=== PATIENT | male | born 1960 | race Caucasian/White ===

== ENCOUNTER → 2018-03-01 | Outpatient (CLI) | payer OTHER | END | disposition home or self-care (01) | LOC: KCIC MRI 12:12 | DX: M51.36 Other intervertebral disc degeneration, lumbar region (principal); M48.061 Spinal stenosis, lumbar region without neurogenic claudication; M47.896 Other spondylosis, lumbar region; M40.46 Postural lordosis, lumbar region | CPT/HCPCS: 72148 ==

== ENCOUNTER → 2018-07-28 | Outpatient (CLI) | payer OTHER ==
[2015-03-03 23:55] VITALS: BP 168/83
--- NOTE | 2018-07-28 10:11 | RAD ---
EXAM: US Achilles left ankle DATE: 07/28/2018 8:12 AM COMPARISON: No prior INDICATION: LT ACHILLES PAIN X'S 3 MONTHS TECHNIQUE: Longitudinal and transverse imaging completed with intermittent Doppler sampling through the Achilles- left ankle FINDINGS: The Achilles tendon is intact from the caudal aponeurosis condensation through the calcaneal attachment. Preserved echogenicity throughout. However there is convex morphology of the deep surface with associated Achilles tendon thickening measuring approximately 1.1 cm in thickness. Negative edema/inflammatory type changes at the peritenon or at Kager's fat pad. Physiologic fluid at the retrocalcaneal bursa. Negative erosive changes at the marginal calcaneus although small enthesophytes are seen. On dynamic imaging, Achilles tendon remains intact with appropriate motion of the Achilles tendon. Incidentally noted is a low-lying/accessory soleus. Limited survey of the marginal ankle joint shows physiologic joint fluid. IMPRESSION: 1. Negative US exam for findings of tendon rupture. 2. However Achilles tendon thickening and convex appearance is most consistent with Achilles tendinosis. No definite fluid cleft to suggest partial thickness tear. 3. Low-lying/accessory soleus is seen. Electronically signed by: Shelton Hinds MD (07/28/2018 10:07 AM) [facility]
== END | disposition home or self-care (01) ==
LOC: US 07:43
PROVIDERS: ATTEND Nurse Practitioner
DX: M25.572 Pain in left ankle and joints of left foot (principal)
CPT/HCPCS: 76881

== ENCOUNTER → 2018-12-28 | Outpatient (CLI) | payer OTHER ==
[2015-03-03 23:55] VITALS: BP 168/83
--- NOTE | 2018-12-28 12:42 | KCIC ---
MR of the right knee HISTORY: Right knee pain chronically. Pain at the patella (10 months. TECHNIQUE: Routine multiplanar sequences are obtained. FINDINGS: The posterior horn the medial meniscus. Medial subluxation of the meniscus. Signal within the lateral meniscus compatible with a tear. Anterior and posterior cruciate ligaments are clear. Medial collateral ligament is intact. Iliotibial band unremarkable. Fibular collateral ligament, biceps femoris tendon and popliteus tendon are intact. Extensor mechanism is intact. Small joint effusion. Moderate to severe patellofemoral joint chondromalacia. Severe chondromalacia at the medial joint compartment. Moderate to severe chondromalacia at the lateral joint compartment. Subchondral marrow edema at the medial tibial plateau may be degenerative versus stress injury. No discrete fracture line is seen. No aggressive bone destruction. No significant Soto's cyst. Anterior subcutaneous edema. IMPRESSION: 1. Medial meniscal tear at the posterior horn with medial subluxation of the meniscus. Lateral meniscal tear 2. Primary osteoarthritis. 3. Mild subchondral marrow edema at the medial tibial plateau may be degenerative. Other options are marrow contusion or stress fracture. No discrete fracture line seen. Electronically signed by: Jason Pablo MD (12/28/2018 12:40 PM) [facility]
== END | disposition home or self-care (01) ==
LOC: KCIC MRI 08:42
PROVIDERS: ATTEND Orthopaedic Surgery
DX: S83.241A Other tear of medial meniscus, current injury, right knee, initial encounter (principal); S83.281A Other tear of lateral meniscus, current injury, right knee, initial encounter; M17.11 Unilateral primary osteoarthritis, right knee; M94.261 Chondromalacia, right knee; R60.9 Edema, unspecified; X58.XXXA Exposure to other specified factors, initial encounter; Y93.89 Activity, other specified; Y92.89 Other specified places as the place of occurrence of the external cause; Y99.8 Other external cause status
CPT/HCPCS: 73721

== ENCOUNTER → 2021-02-13 | Outpatient (CLI) | payer OTHER ==
[2015-03-03 23:55] VITALS: BP 168/83
[~2021-02-13] MED LIST: ATOR40TA59 PO; CITA40TA12 PO; EMPA25TA PO; GABA300C18 PO; INSU100V6 SQ; IOHEXOL 180 MG/ML 10 ML VIAL. ONE; LIRA0.6P2 SQ; LISI-130 PO; TAMS0.4C97 PO; TOLT4CAP PO; TRAZ-118 PO; methylPREDNISolone ACETATE 40 MG/ML VIAL. ONE; methylPREDNISolone ACETATE 80 MG/ML VIAL. ONE
--- NOTE | 2021-02-13 15:39 | PDOC4 ---
Procedure Note: ICD 10 Code: ICD 10 Code: M 54.17 M 48.07 M 51.36 Procedure Note: Patient was consented for lumbar epidural steroid injection. Risks were discussed including but not limited to: Bleeding, infection, possibility of epidural hematoma and subsequent neurological compromise, dural puncture, headaches, spinal cord and/or nerve damage, side effects of steroid medication, and poor results regarding pain control. Patient understands and wished to proceed. Procedure is lumbar epidural steroid injection under local anesthetic using sterile prep and drape at the L5-S1 level using C-arm fluoroscopic guidance in both AP and lateral views medications injected is 120 mg Depo-Medrol +10mL pr eservative-free normal saline and 2 mL contrast- condition at discharge is stable patient tolerated procedure well had no complications. EVAN MILTON MD Feb 13, 2021 15:39
--- NOTE | 2021-02-13 15:39 | PDOC1 ---
INITIAL PAIN CONSULT DATE OF SERVICE: DOS: DATE: 02/13/21 TIME: 15:33 CHIEF COMPLAINT: Chief Complaint: Low back and right lower extremity pain HISTORY OF PRESENT ILLNESS: 60-year-old male presents with history of pain low back right lower extremity for about 2 years not the result of any specific injury or accident that he is aware of is getting worse aggressively with activity and time. Patient reports no recent injuries but the pain is increasing with walking standing he cannot walk for more than about 5 to 10 minutes for him to stop and sit down. Patient reports once he sits down the pain subsides to a moderate extent but then it starts again once he starts walking patient reports the pain is in the low back right lower extremity posterior gluteus posterior thigh posterior calf into the foot and the sole of foot as well as the lateral aspect of the foot and all of the toes patient reports some on the right lateral hip and thigh mostly down the posterior aspect patient describes it as stabbing throbbing shooting in the right leg tingling with numbness also radiating in the leg and across the back cramping and aching in the low back itself worse in the end of the evening or at night and is awakening from sleep at least 2-3 times patient reports is not effective bowel bladder control but does affect ability walk uses a cane at times but does not have that with him today. Patient rates his disability rating 0-10 10 being the worst is a 10 with 10 responsibilities recreation social activity occupation sexual behavior 6 with self-care and 6 with life support activities especially sleeping. Patient have an MRI scan lumbar spine dated 09/18/2020 showing L4-5 disc bulge endplate spurring with right lateral recess narrowing and moderate to severe right and moderate left neuroforaminal narrowing L5-S1 shows diffuse disc bulge with far right lateral endplate spurring facet hypertrophy no canal stenosis but mild to moderate right greater than left foraminal narrowing. PAST MEDICAL HISTORY: PMH: Diabetes, dizziness, arthritis, obesity, hearing loss PREVIOUS SURGERIES: Past Surgical Hx: Umbilical hernia repair, left carpal tunnel repair, tonsillectomy CURRENT MEDICATIONS: Current Meds: Active Scripts Medications Dose Route/Sig Max Daily Dose Days Date Category Humalog (Insulin Lispro) 100 Unit/1 Ml Vial 100 Unit SQ TIDAC 02/13/21 Reported Jardiance (Empagliflozin) 25 Mg Tablet 25 Mg PO DAILY 02/13/21 Reported Atorvastatin Calcium 40 Mg Tablet 1 Tab PO DAILY 02/13/21 Reported Detrol La (Tolterodine Tartrate) 4 Mg Cap.er.24h 1 Cap PO DAILY 02/13/21 Reported Gabapentin (Gabapentin) 300 Mg Capsule 600 Mg PO TID 02/13/21 Reported Lisinopril 40 Mg Tablet 1 Tab PO DAILY 02/13/21 Reported Celexa (Citalopram Hydrobromide) 40 Mg Tablet 1 Tab PO DAILY 02/13/21 Reported Victoza 3-Homar (Liraglutide) 0.6 Mg/0.1 Ml Pen.injctr 1.8 Mg SQ DAILY 02/13/21 Reported Trazodone Hcl 50 Mg Tablet 1 Tab PO QHS 02/13/21 Reported Flomax (Tamsulosin Hcl) 0.4 Mg Cap.er.24h 1 Cap PO DAILY 02/13/21 Reported ALLERGIES; Allergies: Coded Allergies: No Known Drug Allergies (Unverified , 03/04/15) FAMILY HISTORY: Family Hx: Unknown SOCIAL HISTORY: Social Hx: Patient is nondrug alcohol does not drink not use any illegal illicit or recreational drugs, is lives with his spouse lives locally in [place] REVIEW OF SYSTEMS: ROS: Positive for those items mentioned in history of present illness, all systems are reviewed, otherwise negative ,and are complete full and well-documented on patient's chart. PHYSICAL EXAM: VS: Blood pressure is 135/73 pulse 91 respirations 18 temperature 98.3 F height 6 foot weight is 344 pounds PE: PHYSICAL EXAMINATION: GENERAL: The patient is awake, alert, oriented, appropriate, very pleasant demeanor HEENT: Shows normocephalic, atraumatic. Extraocular movements are intact and symmetrical. Oral cavity: Mucous membranes moist and pink. Dentition is intact. NECK: Shows anterior throat supple without palpable lymphadenopathy noted. Swallow reflex symmetrical. CHEST: Shows normal on inspection. Breath sounds are clear bilaterally, distant but no rales or rhonchi. HEART: Shows S1, S2 clear. No murmurs auscultated. ABDOMEN: Soft, nontender, nondistended, obese. No palpable organomegaly is noted. BACK: Shows spine grossly in the midline. Normal-appearing cervical lordotic curvature. There is increased thoracic kyphosis, some mild flattening of the lumbar lordotic curvature. Lumbar paraspinous muscles show symmetrical on inspection, on palpation shows some moderate tenderness diffusely throughout the upper, middle and lower distribution of the paraspinous muscles bilaterally and also into the lower thoracic paraspinous musculature, firm and tender, but witho ut specific trigger points, without radiation of pain. The patient has good rotational motion of the lumbar spine, both laterally as well as extension and flexion without significant difficulty. No tenderness over the spinous processes, sacrum or sacroiliac regions. EXTREMITIES: Lower extremities show deep tendon reflexes 1+ in the patellar and tendo calcaneus tendons. Motor exam is 4 on a scale of 5 with right dorsiflexion, extension, quadriceps and hamstring flexion and 5/5 on the left. Peripheral pulses are 1 posterior tibial. No peripheral edema is noted bilaterally. Lower extremities are warm and dry to touch, equal in color and appearance. Straight leg raise noted to be positive on the right about 40 degrees, left side is negative. Gaenslen's and Junior's maneuvers are negative as well. The patient is able to stand, stand on his toes that significant difficulty or loss of balance walks with a slight favoring gait does appear to favor the right lower extremity slightly but does not use any assistive devices with him today. SKIN: Shows warm and dry, good turgor. No edema. No sores, rashes or bruising throughout. IMPRESSION: Impression: 60-year-old male with approximate 2-year history of low back right lower extr emity pain and radicular fashion. MRI scan lumbar spine as noted Obesity Arthritis Diabetes Hearing loss Plan: Options were discussed with patient occluding conservative medical management physical therapies interventional techniques. Patient would like to pursue dimensional techniques as he is done physical therapy and chiropractic treatment already. We discussed a lumbar epidural steroid injections description as well as anatomical models to describe the procedure. Risks were discussed including but not limited to: Bleeding, infection, possibility of epidural hematoma and subsequent neurological compromise, dural puncture, he adaches, spinal cord and/or nerve damage, side effects of steroid medication, and poor results regarding pain control. Patient understands and wished to proceed. Patient will return to clinic approximate 2 weeks for follow-up, was counseled as return appointment activity level and side effects to be aware of. Procedure is lumbar epidural steroid injection under local anesthetic using sterile prep and drape at the L5-S1 level using C-arm fluoroscopic guidance in both AP and lateral views medications injected is 120 mg Depo-Medrol +10mL preservative-free normal saline and 2 mL contrast- condition at discharge is stable patient tolerated procedure well had no complications. EVAN MILTON MD Feb 13, 2021 15:39
== END | disposition home or self-care (01) ==
LOC: PNCL 13:46
PROVIDERS: ATTEND Anesthesiology
DX: M54.5 Low back pain (principal); M79.604 Pain in right leg; M19.90 Unspecified osteoarthritis, unspecified site; E11.9 Type 2 diabetes mellitus without complications; E66.9 Obesity, unspecified; Z79.899 Other long term (current) drug therapy; Z98.890 Other specified postprocedural states; Z79.4 Long term (current) use of insulin
CPT/HCPCS: 62323; J1030; J1040; Q9965

== ENCOUNTER → 2021-02-28 | Outpatient (CLI) | payer OTHER ==
[2015-03-03 23:55] VITALS: BP 168/83
--- NOTE | 2021-02-28 12:35 | PDOC ---
Progress Note - Pain Clinic Date of Service: DOS: DATE: 02/28/21 TIME: 12:31 Diagnosis: Dx: Lumbar radiculopathy with lumbar degenerative disease and lumbar spinal stenosis History or Present Illness: HPI: 60-year-old male returns for follow-up status post lumbar epidural steroid injection x1. Patient reports about 75% improvement initially with pain now almost completely gone in lower extremities especially on the right side but now returning over the past several days patient reports he was walking with much greater ease and comfort went to the [place] [employer] and to avoid it for 2 days with his grandchildren I was able to stand up and walk standing straighter walking much easier patient reports he is very pleased with his progress. Patient rates his pain a 6 on scale 10 is worse over the past week for an average for its least is a 4 today. Patient reports able to climb stairs much better and overall feels much improved patient reports still better with sitting or laying down does not awaken him from sleep at night reports no new bowel or bladder incontinence or motor or sensory deficits. Patient describes pain is tingling now more than aching and painful in the low back and lower extremities still more on the right side than the left in the posterior gluteus posterior lateral thigh and posterior thigh and calf on the right side and right foot. Physical Exam: VS: Blood pressure is 137/71 pulse 88 respirations 16 temperature 98.2 F height is 6 foot weight 344 pounds PE: PHYSICAL EXAMINATION: GENERAL: The patient is awake, alert, oriented, appropriate, very pleasant in demeanor HEENT: Shows normocephalic, atraumatic. Extraocular movements are intact and symmetrical. Full meredith and mustache. Oral cavity: Mucous membranes moist and pink. Dentition is intact. NECK: Shows anterior throat supple without palpable lymphadenopathy noted. Swallow reflex symmetrical. CHEST: Shows normal on inspection. Breath sounds are clear bilaterally, distant no rales rhonchi wheezes auscultated. HEART: Shows S1, S2 clear. No murmurs auscultated. ABDOMEN: Soft, nontender, nondistended, obese. No palpable organomegaly is noted. BACK: Shows spine grossly in the midline. Normal-appearing cervical lordotic curvature. There is slightly increased thoracic kyphosis, some minor flattening of the lumbar lordotic curvature. Lumbar paraspinous muscles show symmetrical on inspection, on palpation shows some moderate tenderness diffusely throughout the upper, middle and lower distribution of the paraspinous muscles, but without specific trigger points, without radiation of pain. The patient has good rotational motion of the lumbar spine, both laterally as well as extension and flexion without significant difficulty. EXTREMITIES: Lower extremities show deep tendon reflexes 1+ in the patellar and tendo calcaneus tendons. Motor exam is 4 on a scale of 5 with right dorsiflexion, extension, quadriceps and hamstring flexion and 5/5 on the left. Peripheral pulses are 1+ posterior tibial. No peripheral edema is noted bilaterally. Lower extremities are warm and dry. SKIN: Shows warm and dry, good turgor. No edema. No sores, rashes or bruising throughout. Procedure: Procedure: Options were discussed with the patient. Patient chart was reviewed his his current medication regimen updated current review of systems updated today as well. We will proceed with a second in the series lumbar epidural steroid injection today with fluoroscopic guidance. Risks were discussed including but not limited to: Bleeding, infection, possibility of epidural hematoma and subsequent neurological compromise, dural puncture, headaches, spinal cord and/or nerve damage, side effects of steroid medication, and poor results regarding pain control. Patient understands and wished to proceed. Patient will return to the clinic in approximate 2 weeks for follow-up, was counseled as return appointment activity level and side effects to be aware of. Medication Injected: Med Injected: Procedure is lumbar epidural steroid injection under local anesthetic using sterile prep and drape at the L5-S1 level using C-arm fluoroscopic guidance in both AP and lateral views medications injected is 120 mg Depo-Medrol +10mL preservative-free normal saline and 2 mL contrast- condition at discharge is stable patient tolerated procedure well had no complications. Condition at Discharge: Condition at Discharge: Condition at discharge stable, the patient tolerated the procedure well and had no complications. EVAN MILTON MD Feb 28, 2021 12:35
--- NOTE | 2021-02-28 12:36 | PDOC4 ---
Procedure Note: ICD 10 Code: ICD 10 Code: M54.17 Five 4.16 M4 8.07 Procedure Note: Patient was consented for lumbar epidural steroid injection with fluoroscopic guidance. Risks were discussed including but not limited to: Bleeding, infection, possibility of epidural hematoma and subsequent neurological compromise, dural puncture, headaches, spinal cord and/or nerve damage, side effects of steroid medication, and poor results regarding pain control. Patient understands and wished to proceed. Procedure is lumbar epidural steroid injection under local anesthetic using sterile prep and drape at the L5-S1 level using C-arm fluoroscopic guidance in both AP and lateral views medications injected is 120 mg Depo-Medrol +10mL preservative-free normal saline and 2 mL contrast- condition at discharge is stable patient tolerated procedure well had no complications. EVAN MILTON MD Feb 28, 2021 12:35
== END | disposition home or self-care (01) ==
LOC: PNCL 11:10
PROVIDERS: ATTEND Anesthesiology
DX: M51.16 Intervertebral disc disorders with radiculopathy, lumbar region (principal); M48.061 Spinal stenosis, lumbar region without neurogenic claudication; Z79.4 Long term (current) use of insulin; Z79.899 Other long term (current) drug therapy
CPT/HCPCS: 62323; J1030; J1040; Q9965

== ENCOUNTER → 2021-03-21 | Outpatient (CLI) | payer OTHER ==
[2015-03-03 23:55] VITALS: BP 168/83
[~2021-03-21] MED LIST changes: -methylPREDNISolone ACETATE 40 MG/ML VIAL. ONE
--- NOTE | 2021-03-21 08:17 | PDOC4 ---
Procedure Note: ICD 10 Code: ICD 10 Code: M54.17 M 48.07 M51.87 Procedure Note: Patient was consented for lumbar epidural steroid injection with fluoroscopic guidance. Risks were discussed including but not limited to: Bleeding, infection, possibility of epidural hematoma and subsequent neurological compromise, dural puncture, headaches, spinal cord and/or nerve damage, side effects of steroid medication, and poor results regarding pain control. Patient understands and wished to proceed. Procedure is lumbar epidural steroid injection under local anesthetic using joo rile prep and drape at the L5-S1 level using C-arm fluoroscopic guidance in both AP and lateral views medications injected is 120 mg Depo-Medrol +10mL preservative-free normal saline and 2 mL contrast- condition at discharge is stable patient tolerated procedure well had no complications. EVAN MILTON MD Mar 21, 2021 08:17
--- NOTE | 2021-03-21 08:17 | PDOC ---
Progress Note - Pain Clinic Date of Service: DOS: DATE: 03/21/21 TIME: 08:14 Diagnosis: Dx: Lumbar radiculopathy with lumbar degenerative disc disease and lumbar spinal stenosis History or Present Illness: HPI: 60-year-old male returns for follow-up status post lumbar epidural steroid injections x2. Patient reports he did very well after last injection with 75% improvement initially now about 50% overall pain returning in the low back more on the right side than left patient reports new finding of left-sided pain in the hip and posterior gluteus on the left side which has been radiating similar to the right but only on the left patient reports has not had this before also some pain traveling into the mid upper back which is new to him as well patient reports he has been stretching and strengthening exercises which are helping some with the upper back but not with the left leg right leg is still painful with radiating pain described as dull aching cramping in the lower legs as well movement he is taking less of his pain medication at this time and is been increasing his activities greater ease and comfort is sleeping better at night is walking greater distances doing household activities patient reports he was able to ride his motorcycle which had not done in several years as well. Patient reports his pain is an 8-9 on scale 10 is worst 4-5 on average 4-5 its least is a 4-5 today. Patient reports no changes in bowel or bladder incontinence. Physical Exam: VS: Blood pressure is 120/69 pulse 90 respirations 18 temperature 98.2 F height 6 foot weight 342 pounds PE: PHYSICAL EXAMINATION: GENERAL: The patient is awake, alert, oriented, appropriate, very pleasant in demeanor HEENT: Shows normocephalic, atraumatic. Extraocular movements are intact and symmetrical. Oral cavity: Mucous membranes moist and pink. Dentition is intact. NECK: Shows anterior throat supple without palpable lymphadenopathy noted. Swallow reflex symmetrical. CHEST: Shows normal on inspection. Breath sounds are clear bilaterally, no rales rhonchi wheezes auscultated. HEART: Shows S1, S2 clear. No murmurs auscultated. ABDOMEN: Soft, nontender, nondistended, obese. No palpable organomegaly is noted. BACK: Shows spine grossly in the midline. Normal-appearing cervical lordotic curvature. There is slightly increased thoracic kyphosis, some minor flattening of the lumbar lordotic curvature. Lumbar paraspinous muscles show symmetrical on inspection, on palpation shows some moderate tenderness diffusely throughout the upper, middle and lower distribution of the paraspinous muscles without specific trigger points, without radiation of pain. The patient has good rotational motion of the lumbar spine, both laterally as well as extension and flexion without significant difficulty. EXTREMITIES: Lower extremities show deep tendon reflexes 1+ in the patellar and tendo calcaneus tendons. Motor exam is full on a scale of 5 with right dorsiflexion, extension, quadriceps and hamstring flexion and 5/5 on the left. Peripheral pulses are 1+ posterior tibial. No peripheral edema is noted bilaterally. Lower extremities are warm and dry . SKIN: Shows warm and dry, good turgor. No edema. No sores, rashes or bruising throughout. Procedure: Procedure: Options discussed with patient. Patient chart reviewed his current medication regimen updated current review of systems updated today as well. We will proceed with a third lumbar epidural steroid injection today with fluoroscopic guidance. Risks were discussed including but not limited to: Bleeding, infection, possibility of epidural hematoma and subsequent neurological compromise, dural puncture, headaches, spinal cord and/or nerve damage, side effects of steroid medication, and poor results regarding pain control. Patient understands and wished to proceed. Patient return to clinic in approximate 2 weeks for follow-up, was counseled as return appointment, activity level, and side effects to be aware of. Medication Injected: Med Injected: Procedure is lumbar epidural steroid injection under local anesthetic using sterile prep and drape at the L5-S1 level using C-arm fluoroscopic guidance in both AP and lateral views medications injected is 120 mg Depo-Medrol +10mL preservative-free normal saline and 2 mL contrast- condition at discharge is stable patient tolerated procedure well had no complications. Condition at Discharge: Condition at Discharge: Condition at discharge stable, patient tolerated the procedure well and had no complications. EVAN MILTON MD Mar 21, 2021 08:17
== END | disposition home or self-care (01) ==
LOC: PNCL 07:36
PROVIDERS: ATTEND Anesthesiology
DX: M51.16 Intervertebral disc disorders with radiculopathy, lumbar region (principal); M48.061 Spinal stenosis, lumbar region without neurogenic claudication; Z79.899 Other long term (current) drug therapy
CPT/HCPCS: 62323; J1040; Q9965